=== PATIENT | male | born 1940 | race Two or more races ===

== ENCOUNTER 2022-09-19 14:49 | Emergency (ER) | payer OTHER ==
[~2022-09-19] VITALS: Ht 167.6 cm; Wt 78.6 kg
[2022-09-19 14:49] VITALS: BP 92/50
== END 2022-09-20 02:09 | disposition home or self-care (01) ==
LOC: ER 14:49
DX: S09.90XA Unspecified injury of head, initial encounter (principal); I10 Essential (primary) hypertension; E11.9 Type 2 diabetes mellitus without complications; F17.210 Nicotine dependence, cigarettes, uncomplicated; W01.198A Fall on same level from slipping, tripping and stumbling with subsequent striking against other object, initial encounter; Y93.89 Activity, other specified; Y92.89 Other specified places as the place of occurrence of the external cause; Y99.8 Other external cause status
CPT/HCPCS: 70450

== ENCOUNTER 2023-03-11 15:31 | Emergency (ER) | payer OTHER ==
[~2023-03-11] VITALS: Ht 172.7 cm; Wt 81.8 kg
[2023-03-11] MEDS ORDERED: SODIUM CHLORIDE 0.9% 1,000 ML IVB ONE (15:45)
[2023-03-11 16:49] LABS: Basophils # (auto) 0.1 10 ^3/uL (0-0.2); Basophils % (auto) 0.7 % (0.0-2.0); Eosinophils # (auto) 0.3 10 ^3/uL (0-0.8); Eosinophils % (auto) 3.1 % (0.0-7.0); Hemoglobin 14.3 g/dL (13.5-17.5); Lymphocytes # (auto) 2.2 10 ^3/uL (0.4-5.4); Lymphocytes % (auto) 20.2 % (10.0-50.0); Mean Corpuscular Hgb Conc. 34.7 g/dL (32.0-36.0); Mean Corpuscular Volume 92.2 fL (80.0-100.0); Monocytes % (auto) 9.6 % (0.0-12.0); Neutrophils # (auto) 7.2 10 ^3/uL (1.6-8.6); Neutrophils % (auto) 66.4 % (37.0-80.0); Red Blood Cells 4.45 10^6/uL (4.5-5.90); Red Cell Distribution Width 13.4 % (11.8-14.3); White Blood Cell 10.8 10^3/uL (4.4-10.8)
[2023-03-11 17:05] LABS: INR 0.95 (0.9-1.15); Partial Thromboplastin Time 24.4 sec (24.6-33.4)
[2023-03-11 17:19] LABS: Potassium 4.3 mmol/L (3.5-5.1)
[2023-03-11 17:31] LABS: Albumin 3.6 g/dL (3.4-5.0); BUN/Creatinine Ratio 24.2 (10.0-20.0); Bilirubin, Total 0.4 mg/dL (0.2-1.0); Calcium 9.2 mg/dL (8.5-10.1); Magnesium 1.8 mg/dL (1.6-2.6); Total Protein 6.6 g/dL (6.4-8.2)
[2023-03-11 19:13] VITALS: BP 104/61
== END 2023-03-12 01:48 | disposition left against medical advice (07) ==
LOC: ER 15:31 → EDBD 15:31 → ER 03-12 01:48
DX: R53.1 Weakness (principal); I95.9 Hypotension, unspecified; R79.89 Other specified abnormal findings of blood chemistry; E11.9 Type 2 diabetes mellitus without complications; E78.5 Hyperlipidemia, unspecified; I10 Essential (primary) hypertension; F17.210 Nicotine dependence, cigarettes, uncomplicated; Z79.899 Other long term (current) drug therapy; Z79.01 Long term (current) use of anticoagulants; Z20.822 Contact with and (suspected) exposure to COVID-19
CPT/HCPCS: 36415; 71045; 74176; 80053; 82962; 83605; 83690; 83735; 84484; 85025; 85610; 85730; 87040; 87426; 96360; 99284; J7030